=== PATIENT | female | born 2000 | race Caucasian/White ===

== ENCOUNTER 2021-09-27 13:37 | Emergency (ER) | payer OTHER, SELFPAY ==
--- NOTE | 2021-09-27 13:45 | ED.URI ---
HPI - URI/Sore Throat General Chief Complaint: Upper Respiratory Infection Stated Complaint: sore throat, cough Time Seen by Provider: 09/27/21 13:45 Source: patient and RN notes reviewed History of Present Illness HPI Narrative: Patient is a 21-year-old female who presents the urgent care with complaints of sore throat, cough, congestion for the last 3 days. Patient states that she does not have a Covid vaccine but did have Covid last October. Patient has been taking Robitussin for her symptoms. Denies of any recent fevers. States that she had strep in August. Denies of any difficulty breathing or chest pain. Notable harsh cough. No other acute complaints. No acute distress noted. Patient aware of the plan of care. Some parts of this dictation were generated by voice recognition software and may contain typographical and/or grammatical inaccuracies. Related Data Allergies Allergy/AdvReac Type Severity Reaction Status Date / Time amoxicillin Allergy Unknown Unknown Verified 09/27/21 14:22 Review of Systems Review of Systems: CONSTITUTIONAL: Denies fever, chills, or sweats. EYES: Denies visual changes, redness, or discharge. ENT: Reports of congestion, sore throat CARDIOVASCULAR: Denies chest pain, palpitations, or edema. RESPIRATORY: Reports a persistent nonproductive cough without dyspnea GASTROINTESTINAL: Denies abdominal pain, nausea, vomiting, or diarrhea. GENITOURINARY: Denies dysuria or hematuria. SKIN: Denies rash or itching. MUSCULOSKELETAL: Denies back pain, joint pain, or myalgia. NEUROLOGIC: Denies headache, numbness, or weakness. All other systems reviewed are negative, except as documented in HPI. [facility] Past Medical History Medical History (Updated 09/27/21 @ 14:29 by PAULINA Esteban) Anxiety Social History Social History (Updated 09/24/19 @ 20:24 by Delta Loaiza PA-C) Smoking status: Current every day smoker Gender identity (if verbalized by the patient): Female Comments At the time of my signature, I reviewed and agree with the nursing past medical, surgical, social, and family history. There is no relevant family history pertinent to the patient complaint. Exam Narrative: GENERAL: This is a well-nourished, well-developed patient, in no apparent distress. HEAD: normocephalic, atraumatic. Frontal sinus tenderness EYES: PERRL. Sclera clear/white. Vision is grossly intact. Bilateral injected conjunctiva EARS: External ears normal, auditory canals clear and without drainage, TMs normal without perforation. Hearing grossly intact. NOSE: External nose normal with no obvious nasal discharge, bilateral erythemic nares with clear rhinorrhea and notable nasal congestion THROAT: Mucous membranes moist, posterior pharynx clear. Moderate postnasal drainage NECK: Neck supple CARDIOVASCULAR: Regular rate and rhythm without murmurs, gallops, or rubs. RESPIRATORY: Slight expiratory wheeze to left upper lobe otherwise clear throughout SKIN: warm, intact with no suspicious lesions or rash, good texture and turgor. NEURO: awake, alert, and oriented to person, place and time. There were no obvious focal neurologic abnormalities. EXTREMITIES: No clubbing, cyanosis, or edema. Course Vital Signs Vital signs: Vital Signs Temperature 97.9 F 09/27/21 13:48 Pulse Rate 102 H 09/27/21 13:48 Respiratory Rate 20 09/27/21 13:48 Blood Pressure 135/62 09/27/21 13:48 Pulse Oximetry 99 09/27/21 13:48 Temperature 97.9 F 09/27/21 13:48 Pulse Rate 102 H 09/27/21 13:48 Respiratory Rate 20 09/27/21 13:48 Blood Pressure 135/62 09/27/21 13:48 Pulse Oximetry 99 09/27/21 13:48 Reviewed MDM - URI/Sore Throat MDM Narrative Medical decision making narrative: Reviewed lab results with the patient. She is aware that strep swab was negative. Educated patient on culture we will call within 72 hours if culture is positive and antibiotics necessary. Advised the patient to complete the s
[2021-09-27 13:48] VITALS: BP 135/62; PULSE 102; RESP 20; TEMP 36.6; O2SAT 99
== END 2021-09-27 14:30 | disposition home or self-care (01) ==
PROVIDERS: Emergency Provider Nurse Practitioner Family
DX: J40 Bronchitis, not specified as acute or chronic (principal); F17.200 Nicotine dependence, unspecified, uncomplicated
CPT/HCPCS: 87081; 87880; 99213; G0463

== ENCOUNTER 2021-10-08 13:09 | Emergency (ER) | payer OTHER, SELFPAY ==
[2021-10-08 13:20] VITALS: BP 108/74; PULSE 93; RESP 16; TEMP 36.8; O2SAT 100
--- NOTE | 2021-10-08 14:00 | ED.URI ---
HPI - URI/Sore Throat General Chief Complaint: Upper Respiratory Infection Stated Complaint: congestion and sore throat Time Seen by Provider: 10/08/21 14:01 Source: patient, RN notes reviewed and old records reviewed Mode of arrival: ambulatory Limitations: no limitations History of Present Illness HPI Narrative: 21 year old female who presents to express care with complaints of cough, congestion, headache and some shortness of breath. Patient states that she has been using her mother inhaler which was in 2019. Patient denies any fevers, chills or sweats reports some body aches. Patient was seen here on the 27 of September and states she took the prednisone as ordered which she doesn't feel helped that much, she didn't follow up with her PCP. She denies pain with deep breathing but states that breathing feels tight with history of asthma and seasonal allergies.Patient has not had COVID vaccination but had COVID 10/2020. Related Data Allergies Allergy/AdvReac Type Severity Reaction Status Date / Time amoxicillin Allergy Unknown Unknown Verified 10/08/21 14:02 Review of Systems Review of Systems: CONSTITUTIONAL: Denies fever, chills, or sweats. EYES: Denies visual changes, redness, or discharge. ENT: Denies rhinorrhea, congestion, sore throat, or otalgia. CARDIOVASCULAR: Denies chest pain, palpitations, or edema. RESPIRATORY: Positive for cough or dyspnea. GASTROINTESTINAL: Denies abdominal pain, nausea, vomiting, or diarrhea. GENITOURINARY: Denies dysuria or hematuria. SKIN: Denies rash or itching. MUSCULOSKELETAL: Denies back pain, joint pain, some body aches NEUROLOGIC: Positive for headache, no numbness, or weakness. PSYCHIATRIC: Positive for history of anxiety or depression. All systems reviewed & are unremarkable except as noted in HPI and below PMFSH Past Medical History Medical History (Updated 10/09/21 @ 22:12 by Tigist Ayers NP) Anxiety Asthma Seasonal allergies Surgical History Surgical History (Updated 10/09/21 @ 22:13 by Tigist Ayers NP) No history of previous surgery Family History Family History (Updated 10/09/21 @ 22:16 by Tigist Ayers NP) Father Hypertension Mother Asthma Social History Social History (Updated 10/09/21 @ 22:17 by Tigist Ayers NP) Tobacco type: e-cigarettes/vaping Additional smoking assessment comments: smoked cigarettes for one year now vapes Alcohol intake: current Alcohol use details: social Substance use type: does not use Living arrangements: with family Gender identity (if verbalized by the patient): Female Comments At time of signature, agree with nursing past medical, surgical, social and family history. There is no relevant family history pertinent to the presenting complaint Exam Narrative: GENERAL: Well-appearing, well-nourished, and in no acute distress. HEAD: Normocephalic, atraumatic. EYES: PERRLA and EOMI. ENT: Nares red with clear rhinorrhea no epistaxis. Mucous membranes moist.TM's normal with good light reflex, throat has mild redness with no lesions exudates or tonsil enlargement. NECK: Supple.no lymphadenopathy CHEST: Decreased breath sounds on auscultation. No respiratory distress.[id number]% on room air HEART: Regular rate and rhythm. No murmur heard. Normal peripheral pulses. ABDOMEN: Soft, nontender, nondistended, normal active bowel sounds. EXTREMITIES: Normal range of motion. No edema. SKIN: Warm, dry, no rash. NEURO: No focal deficits. Alert and oriented x3. Course Vital Signs Vital signs: Vital Signs Temperature 36.8 C 10/08/21 13:20 Pulse Rate 93 10/08/21 13:20 Respiratory Rate 16 10/08/21 13:20 Blood Pressure 108/74 10/08/21 13:20 Pulse Oximetry 100 10/08/21 13:20 Temperature 36.8 C 10/08/21 13:20 Pulse Rate 93 10/08/21 13:20 Respiratory Rate 16 10/08/21 13:20 Blood Pressure 108/74 10/08/21 13:20 Pulse Oximetry 100 10/08/21 13:20 MDM - URI/Sore Th
[2021-10-08] MEDS: IPRATROPIUM BR 0.02% INH SOLN 0.5 MG/2.5 ML VIAL INHALATION (14:09)
[2021-10-08] MEDS: ALBUTEROL SULFATE NEB 2.5 MG/3 ML INH INHALATION (14:13)
== END 2021-10-08 15:10 | disposition home or self-care (01) ==
PROVIDERS: Emergency Provider Registered Nurse
DX: J06.9 Acute upper respiratory infection, unspecified (principal); F17.290 Nicotine dependence, other tobacco product, uncomplicated; Z20.822 Contact with and (suspected) exposure to COVID-19
CPT/HCPCS: 87426; 94640; 99213; C9803; G0463

== ENCOUNTER 2023-04-21 15:03 | Emergency (ER) | payer OTHER, SELFPAY ==
--- NOTE | 2023-04-21 15:11 | ED.URI ---
HPI - URI/Sore Throat General Chief Complaint: Recheck/Abnormal Lab/Rx Stated Complaint: med refills Time Seen by Provider: 04/21/23 15:25 Source: patient Mode of arrival: ambulatory Limitations: no limitations History of Present Illness HPI Narrative: Miguel is a 22-year-old male patient presenting to the clinic today with request for a medication refill. She reports today is her last day of her venlafaxine 150 mg tabs and she does not have an appointment with her PCP until May 12. States that she has been without the medication before an end up hospitalized due to withdrawal symptoms. She denies any concerns with taking the medication. Related Data Allergies Allergy/AdvReac Type Severity Reaction Status Date / Time amoxicillin Allergy Unknown Unknown Verified 10/08/21 14:02 [facility] Past Medical History Medical History (Updated 04/21/23 @ 15:43 by Inocente Nix APRN) Anxiety Asthma Seasonal allergies Surgical History Surgical History No history of previous surgery Family History Family History Father Hypertension Mother Asthma Social History Social History Tobacco type: e-cigarettes/vaping Additional smoking assessment comments: smoked cigarettes for one year now vapes Alcohol intake: current Alcohol use details: social Substance use type: does not use Living arrangements: with family Gender identity (if verbalized by the patient): Female Comments At the time of my signature, I reviewed and agree with the nursing past medical, surgical, social, and family history. There is no relevant family history pertinent to the patient complaint. Exam Narrative: General: Well-developed, well nourished, in no apparent distress Head: Normocephalic, atraumatic. Cardio: Regular rate and rhythm, s1 and s2 normal, no murmur appreciated. Resp: Clear to auscultation bilaterally, no rhonchi, rales, wheezing or rubs. Extremities: No deformity, no edema, no cyanosis, capillary refill less than 2 seconds, peripheral pulses palpable and strong. Integumentary: [place], warm, and dry, intact without lesion, no rashes. Psych: Alert and oriented x4, normal speech, good insight, good judgment, denies thoughts of suicide or homicide Course Course Emergency Course: Portions of this record may have been created with voice recognition software. Level of Care: Express Care Visit Vital Signs Vital signs: Vital signs reviewed MDM - URI/Sore Throat MDM Narrative Medical decision making narrative: At the time of visit patient is resting on the exam table. Is requesting a refill on her Effexor. Will send and 1 month prescription and have her follow-up with her PCP in May as scheduled. Supportive measures were discussed with the patient she voiced understanding discharge instructions and agrees to the treatment plan Differential Diagnosis Differential diagnosis: Likely other (Medication refill, depression) Discharge Plan Discharge Clinical Impression: Encounter for medication refill Patient Disposition: Home, Self-Care Condition: Stable Instructions: Antibiotic Form, Medicine Refill (ED) Additional Instructions: Take medications as prescribed Follow-up with your PCP as scheduled Prescriptions: New venlafaxine 150 mg capsule,extended release 24hr 150 mg PO DAILY 30 Days Qty: 30 0RF Follow-up/Referrals: Rosanne,JANINA Barclay [Primary Care Provider] - Time of Disposition: 15:44 Quality NIHSS Nursing Documentation ED NIHSS nursing documentation: reviewed/agree
[2023-04-21 15:19] VITALS: BP 146/76; PULSE 86; RESP 18; TEMP 36.4; O2SAT 98
== END 2023-04-21 15:46 | disposition home or self-care (01) ==
PROVIDERS: Emergency Provider Nurse Practitioner Family; PCP Physician Assistant
DX: Z76.0 Encounter for issue of repeat prescription (principal)
CPT/HCPCS: 99213; G0463

== ENCOUNTER 2023-12-02 14:05 | Emergency (ER) | payer OTHER, SELFPAY ==
--- NOTE | ~2023-12-02 | XR_ITS ---
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 RESULT: Lines, tubes, and devices: None. Lungs and pleura: Clear. Cardiomediastinal silhouette: Stable. Other: No acute osseous or upper abdominal finding. IMPRESSION: No acute cardiopulmonary process. Reviewed, dictated and finalized at location K. E ANALYST
[2023-12-02 14:43] VITALS: BP 142/86; PULSE 97; RESP 16; TEMP 36.6; O2SAT 98
--- NOTE | 2023-12-02 17:29 | ECG_ITS ---
Measurements Intervals [place] Rate: 85 P: 37 [place]: 165 QRS: 5 QRSD: 79 T: 11 QT: 347 QTc: 414 Interpretive Statements SINUS RHYTHM LOW QRS VOLTAGE IN PRECORDIAL LEADS BORDERLINE R WAVE PROGRESSION, ANTERIOR LEADS BORDERLINE ECG NO PREVIOUS ECG AVAILABLE FOR COMPARISON Electronically Signed On 12-02-2023 19:29:23 [employer] by Delfino Schmidt D.O.
--- NOTE | 2023-12-02 17:29 | ED.URI ---
HPI - URI/Sore Throat General Chief Complaint: Upper Respiratory Infection <Marina Herron PA-C - Last Filed: 12/02/23 17:32> Stated Complaint: URI <Marina Herron PA-C - Last Filed: 12/02/23 17:32> Time Seen by Provider: 12/02/23 17:29 <Marina Herron PA-C - Last Filed: 12/02/23 17:32> Focused HPI: 23 y/o F reports for evaluation for left sided sharp chest pain that is worse with movement, dyspnea and a productive cough x1.5 week. Pt states she was diagnosed with influenza A 1.5 weeks ago and her symptoms have been persistent since. She reports associated generalized weakness. Denies fever, abdominal pain, n/v/d. She reports a history of seasonal asthma and is running low on her inhaler. She is PERC negative. GENERAL: Well-appearing, well-nourished, and in no acute distress. HEAD: Normocephalic, atraumatic. CHEST: Clear to auscultation. ?No respiratory distress. HEART: Regular rate and rhythm.? NEURO: ?Alert and oriented x3. Patient screened in triage and initial orders placed.? ?Additional care and disposition to be based upon?diagnostic testing and treatment. <Marina Herron PA-C - Last Filed: 12/02/23 17:32> Related Data Allergies/Adverse Reactions: Allergies Allergy/AdvReac Type Severity Reaction Status Date / Time amoxicillin Allergy Unknown Unknown Verified 10/08/21 14:02 <Marina Herron PA-C - Last Filed: 12/02/23 17:32> Review of Systems Review of Systems: All systems reviewed & are unremarkable except as noted in HPI and below <Darya Cummins MD - Last Filed: 12/03/23 12:15> PMFSH Past Medical History Medical History: Medical History Anxiety Asthma Seasonal allergies <Marina Herron PA-C - Last Filed: 12/02/23 17:32> Surgical History Surgical History: Surgical History No history of previous surgery <Marina Herron PA-C - Last Filed: 12/02/23 17:32> Family History Family History: Family History Father Hypertension Mother Asthma <Marina Herron PA-C - Last Filed: 12/02/23 17:32> Social History Social History: Social History Tobacco type: e-cigarettes/vaping Additional smoking assessment comments: smoked cigarettes for one year now vapes Alcohol intake: current Alcohol use details: social Substance use type: does not use Living arrangements: with family Gender identity (if verbalized by the patient): Female <KEVIN Glover Last Filed: 12/02/23 17:32> Exam Narrative: GENERAL: Nontoxic, no acute distress HEAD: Normocephalic, atraumatic. EYES: PERRLA and EOMI. ENT: Mucous membranes moist. NECK: Supple. CHEST: Clear to auscultation. No respiratory distress. No wheezing or crackles appreciated HEART: Regular rate and rhythm ABDOMEN: Soft, nontender, nondistended EXTREMITIES: No edema. SKIN: Warm, dry, no rash. NEURO: No focal deficits. Alert and oriented x3. PSYCH: Normal mood and affect. <Darya Cummins MD - Last Filed: 12/03/23 12:15> Course Vital Signs Vital signs: Vital Signs Temperature 97.8 F 12/02/23 14:43 Pulse Rate 97 12/02/23 14:43 Respiratory Rate 16 12/02/23 14:43 Blood Pressure 142/86 H 12/02/23 14:43 Pulse Oximetry 98 12/02/23 14:43 Temperature 97.8 F 12/02/23 14:43 Pulse Rate 103 H 12/02/23 20:44 Respiratory Rate 15 12/02/23 20:44 Blood Pressure 145/82 H 12/02/23 20:44 Pulse Oximetry 99 12/02/23 20:44 Oxygen Delivery Room Air 12/02/23 19:43 <Marina Herron PA-C - Last Filed: 12/02/23 17:32> Vital Signs Temperature 97.8 F 12/02/23 14:43 Pulse Rate 97 12/02/23 14:43 Respiratory Rate 16 12/02/23 14:43 Blood Pressure 142/86 H 12/02/23 14:43 Pu
[2023-12-02 17:51] LABS: Basophils Absolute Auto 0.1 K/mm3 (0.0-0.1); Basophils Percent Auto 1.1 % (0.2-1.2); Eosinophils Absolute Auto 0.1 K/mm3 (0-0.3); Hematocrit 40.5 % (37.0-47.0); Hemoglobin 12.9 g/dL (12.0-15.0); Immature Granulocyte Absolute 0.19 K/mm3 (0.00-0.031); Immature Granulocyte Percent A 1.6 % (0-0.5); Lymphocytes Absolute Auto 2.29 K/mm3 (0.9-3.2); Lymphocytes Percent Auto 18.7 % (18.3-44.2); Mean Corpuscular HGB Conc 31.9 g/dl (32-36); Mean Corpuscular Hemoglobin 26.8 pg (26-34); Mean Platelet Volume 10.2 fl (7.4-10.4); Monocytes Absolute Auto 1.1 K/mm3 (0.1-0.6); Monocytes Percent Auto 8.7 % (2.6-8.5); Neutrophils Absolute Auto 8.4 K/mm3 (1.3-6.7); Neutrophils Percent Auto 68.9 % (45.5-73.1); Platelet Count Result 393 k/mm3 (150-375); Red Blood Count 4.82 M/mm3 (4.2-5.4); Red Cell Distribution Width 13.1 % (11.5-14.5); White Blood Count 12.2 K/mm3 (4.5-10.0)
[2023-12-02 17:59] LABS: Alanine Aminotransferase 21 U/L (6-35); Albumin Level 4.1 g/dL (3.5-5.1); Alkaline Phosphatase 95 U/L (38-126); Anion Gap 7 mmol/L (8-16); Aspartate Amino Transferase 25 U/L (14-36); Bilirubin,Total 0.4 mg/dL (0.2-1.3); Blood Urea Nitrogen 9 mg/dL (7-17); Calcium 9.2 mg/dL (8.4-10.2); Carbon Dioxide 24 mmol/L (22-30); Chloride 108 mmol/L (98-107); Estimated CRCL calculation 112 ml/min; Estimated Glomerular Filt Rate > 60; Glucose 88 mg/dL (65-110); Potassium 3.8 mmol/L (3.4-5.0); Sodium 139 mmol/L (137-145)
[2023-12-02 18:11] LABS: Troponin I < 0.012 ng/mL (0.000-0.034)
[2023-12-02 18:27] LABS: Influenza A QL RT-PCR Negative (Negative); Influenza B QL RT-PCR Negative (Negative); RSV RNA, RT-PCR Negative (Negative); SARS-CoV-2 RNA PCR Negative (Negative)
[2023-12-02 19:43] VITALS: O2SAT 98
[2023-12-02] MEDS: ALBUTEROL SULFATE NEB 2.5 MG/3 ML INH 5 MG INHALATION (20:06)
[2023-12-02] MEDS: IPRATROPIUM BR 0.02% INH SOLN 0.5 MG/2.5 ML VIAL INHALATION (20:07)
[2023-12-02 20:10] VITALS: PULSE 98; RESP 20
[2023-12-02 20:28] VITALS: PULSE 106; RESP 22
[2023-12-02] MEDS: predniSONE 20 MG TABLET 40 MG PO (20:41)
[2023-12-02 20:44] VITALS: BP 145/82; PULSE 103; RESP 15; O2SAT 99
== END 2023-12-02 20:46 | disposition home or self-care (01) ==
PROVIDERS: Physician Assistant; Emergency Provider Emergency Medicine; PCP Physician Assistant
DX: J45.909 Unspecified asthma, uncomplicated (principal); Z20.822 Contact with and (suspected) exposure to COVID-19; F17.290 Nicotine dependence, other tobacco product, uncomplicated; R94.31 Abnormal electrocardiogram [ECG] [EKG]
CPT/HCPCS: 36415; 71046; 80053; 84484; 85025; 87637; 93005; 94640; 99284; J7512